=== PATIENT | male | born 1985 | race African-American/Black ===

== ENCOUNTER 2017-04-05 02:39 | Emergency (ER) | payer OTHER, MEDICAID ==
[~2017-04-05] VITALS: Ht 167.6 cm; Wt 68.0 kg
[~2017-04-05 02:39] MED LIST: CLON1TAB1 PO; ESK300 PO; TRAZ-286 PO
--- NOTE | 2017-04-05 02:39 | NUR ---
Patient was BIBA at this time.
[2017-04-05 02:42] VITALS: BP 136/88
--- NOTE | 2017-04-05 03:40 | NUR ---
Patient to bed 06.
--- NOTE | 2017-04-05 03:45 | NUR ---
Dr. Gill evaluating patient at bedside.
--- NOTE | 2017-04-05 04:12 | NUR ---
[place] [employer] at bedside to evaluate patient.
--- NOTE | 2017-04-05 04:15 | NUR ---
32Y/M PT. BIBA TO ED WITH C/O PANIC ATTACK. PT. STATES HX. SCHIZOPRENIA, HAVING EPISODE OF HALLUCINATION, NEED EVALUTION. AAO X4, AMBULATORY WITH STEADY GAIT. RESPIRATIONS ROOM AIR, EVEN AND UNLBAORED. C/O CHEST PAIN 12/31. VSS, ER MD MADE AWARE OF PT. STATUS.
--- NOTE | 2017-04-05 04:37 | NUR ---
EKG/LAB AT BEDSIDE
[2017-04-05] MEDS ORDERED: LORazepam 2 MG/ML VIAL IM ONE (04:40)
--- NOTE | 2017-04-05 04:51 | NUR ---
PT IN THE PHONE AT THIS TIME, CUP OF WATER AND JUICE GIVEN,
[2017-04-05 04:55] LABS: HEMATOCRIT 41.2 % (36-52); HEMOGLOBIN 13.6 g/dL (12.0-18.0); MEAN CORPUSCULAR HEMOGLOBIN 31 pg (27-31); MEAN CORPUSCULAR HGB CONC 33 g/dL (33-37); MEAN CORPUSCULAR VOLUME 95 fL (80-94); PLATELET COUNT (AUTO) 260 K/uL (140-450); RED BLOOD CELL COUNT(AUTO) 4.34 MIL/uL (4.20-6.10); RED CELL DISTRIBUTION WIDTH 12.7 % (11.6-13.7); WHITE BLOOD COUNT (AUTO) 14.4 K/uL (4.8-10.8)
[2017-04-05] MEDS ORDERED: ZOLP10TA1 PO (05:00)
[2017-04-05 05:06] LABS: LYMPHOCYTES % (MANUAL) 7 % (20-46); MONOCYTES % (MANUAL) 4 % (5-12); NEUTROPHILS % (MANUAL) 89 (43-65)
[2017-04-05 05:07] LABS: STOMATOCYTES 1+
[2017-04-05 05:09] LABS: ALANINE AMINOTRANSFERASE 31 U/L (16-63); ALBUMIN 4.5 g/dL (3.4-5.0); ALCOHOL, BLOOD < 3 mg/dL (<3); ALKALINE PHOSPHATASE 68 U/L (46-116); ANION GAP 13.5 (8-16); ASPARTATE AMINOTRANSFERASE 25 U/L (15-37); CALCIUM 8.9 mg/dL (8.5-10.1); CARBON DIOXIDE 27.6 mmol/L (21-32); CHLORIDE 104 mmol/L (98-107); GFR ARICAN-AMERICAN 110 mL/min (>90); GFR NON ARICAN-AMERICAN 91 mL/min (>90); GLUCOSE 109 mg/dL (74-106); POTASSIUM 4.1 mmol/L (3.5-5.1); SODIUM SERUM 141 mmol/L (136-145); TOTAL BILIRUBIN 0.6 mg/dL (0.0-1.0); TOTAL PROTEIN, SERUM 8.3 g/dL (6.4-8.2); UREA NITROGEN, BLOOD 17 mg/dL (7-18)
[2017-04-05 05:11] LABS: ACETAMINOPHEN < 0.5 ug/ml (10-30); SALICYLATE < 2.8 mg/dL (2.8-20.0)
--- NOTE | 2017-04-05 05:18 | NUR ---
PT WENT TO THE BATHROOM AT THIS TIME,
--- NOTE | 2017-04-05 05:20 | NUR ---
PT IN THE PHONE AT THIS TIME, NO AGITATION NOTED LATEST TEMP 98.5 VIA TEMPORAL
[2017-04-05 05:32] VITALS: BP 132/88
--- NOTE | 2017-04-05 05:36 | NUR ---
Patient discharged with v/s stable. Written and verbal after care instructions given and explained. Patient alert, oriented and verbalized understanding of instructions. Ambulatory with steady gait. All questions addressed prior to discharge. ID band removed. Patient advised to follow up with PMD. Rx of XANAX 0.5MG TID/PRN given. Patient educated on indication of medication including possible reaction and side effects. Opportunity to ask questions provided and answered.
== END 2017-04-05 05:32 | disposition home or self-care (01) ==
LOC: MED 02:39
DX: F99 Mental disorder, not otherwise specified (principal); I10 Essential (primary) hypertension; F41.9 Anxiety disorder, unspecified; J45.909 Unspecified asthma, uncomplicated; Z79.899 Other long term (current) drug therapy
CPT/HCPCS: 36415; 80053; 85025; 93005; 96372; 99285; G0480; G0482; J2060

== ENCOUNTER 2019-02-15 21:33 | Emergency (ER) | payer OTHER ==
[~2019-02-15] VITALS: Ht 167.6 cm; Wt 74.8 kg
[~2019-02-15 21:33] MED LIST changes: -TRAZ-286 PO; +TRAZ-343 PO; +ZOLP10TA1 PO
--- NOTE | 2019-02-15 21:33 | NUR ---
PT [facility]AN BLS. TAKEN TO BED 2
[2019-02-15 21:34] VITALS: BP 134/106
--- NOTE | 2019-02-15 21:43 | NUR ---
PT TO ED WITH C/O L SIDED TESTICULAR PAIN. PT DENIES INJURY OR TRAUMA TO AREA. PER PT "I'VE HAD THIS PROBLEM FOR YEARS AND ITS GETTING WORSE; IT GOT WORSE TODAY" PT PLACED INTO BED, PENDING MD POMPA.
[2019-02-15] MEDS ORDERED: IBUPROFEN 600 MG TAB PO ONE (21:45)
--- NOTE | 2019-02-15 21:50 | NUR ---
PT STATED "I DONT WANT A MALE NURSE" MD NOTIFIED. PAYROLL ACCOUNTING CLERK NOTIFIED.
--- NOTE | 2019-02-15 22:00 | NUR ---
CABLE ASSEMBLER AND SWAGER IN ROOM SPEAKING WITH PATIENT WITH SOCIAL SCIENCE MANAGER.
--- NOTE | 2019-02-15 22:20 | NUR ---
PT REFUSING TO AMBULATE TO RESTROOM FOR URINE SAMPLE, URINAL PROVIDED.
[2019-02-15 22:41] LABS: APPEARANCE,URINE CLEAR (CLEAR); BILIRUBIN,URINE NEGATIVE (NEGATIVE); BLOOD, URINE NEGATIVE (NEGATIVE); COLOR,URINE YELLOW (YELLOW); LEUKOCYTE ESTERASE ,URINE NEGATIVE (NEGATIVE); NITRITE, URINE NEGATIVE (NEGATIVE); UGLUCOSE NEGATIVE (NEGATIVE)
--- NOTE | 2019-02-15 22:55 | NUR ---
Patient discharged with v/s stable. Written and verbal after care instructions given and explained. Patient verbalized understanding. Ambulatory with steady gait. All questions addressed prior to discharge. Advised to follow up with PMD.
[2019-02-15 22:56] VITALS: BP 97/58
== END 2019-02-15 22:55 | disposition home or self-care (01) ==
LOC: MED 21:33
DX: N50.811 Right testicular pain (principal); J45.909 Unspecified asthma, uncomplicated; I10 Essential (primary) hypertension; Z79.899 Other long term (current) drug therapy
CPT/HCPCS: 76870; 81003; 99284; Q0092